=== PATIENT | male | born 1965 | race Two or more races ===

== ENCOUNTER 2022-07-20 09:36 | Outpatient (CLI) | payer OTHER | END 2022-07-20 09:41 | disposition home or self-care (01) | LOC: LAB 09:36 | PROVIDERS: ATTEND Orthopaedic Surgery | DX: D64.89 Other specified anemias (principal); E88.89 Other specified metabolic disorders; D68.8 Other specified coagulation defects; N39.0 Urinary tract infection, site not specified; Z22.322 Carrier or suspected carrier of Methicillin resistant Staphylococcus aureus; M25.511 Pain in right shoulder; Z76.89 Persons encountering health services in other specified circumstances; I49.9 Cardiac arrhythmia, unspecified; I10 Essential (primary) hypertension ==

== ENCOUNTER 2022-08-01 06:23 | Outpatient (CLI) | payer OTHER ==
[~2022-08-01 06:23] MED LIST: CHILDREN'S ASPI81 MG PO; LANOXIN125 MCG PO; TOPROL XL25 M1 PO; [UNRECOGNIZED DRUG - OTHER]; [UNRECOGNIZED DRUG - OTHER]
== END 2022-08-01 06:27 | disposition home or self-care (01) ==
LOC: LAB 06:23
PROVIDERS: ATTEND Orthopaedic Surgery
DX: D68.8 Other specified coagulation defects (principal)

== ENCOUNTER 2022-08-01 08:53 | Day surgery (SDC) | payer OTHER ==
[~2022-08-01] VITALS: Ht 175.3 cm; Wt 87.5 kg
== END 2022-08-01 16:45 | disposition home or self-care (01) ==
LOC: CIR.AMB 08:53
PROVIDERS: ATTEND Orthopaedic Surgery
DX: M75.121 Complete rotator cuff tear or rupture of right shoulder, not specified as traumatic (principal); Z53.09 Procedure and treatment not carried out because of other contraindication; Z20.822 Contact with and (suspected) exposure to COVID-19; I10 Essential (primary) hypertension; N18.6 End stage renal disease